=== PATIENT | female | born 1955 | race Caucasian/White ===

== ENCOUNTER 2016-11-10 23:30 | Emergency (ER) | payer OTHER ==
[~2016-11-10 23:30] MED LIST: AMOXICILLIN875 MG PO; CALCIUM; CIPRO500 M2 PO; CO Q-10; ESSENTIAL OIL PO; FLAGYL500 M1 PO; FLEXERIL10 MG PO; HYDROCHLOROTHIA25 MG PO; LISINOPRIL-HCT1 EAC1 PO; LISINOPRIL20 M1 PO; NO MEDS; NORCO 7.5/325 T1 TAB PO; NORVASC5 MG PO; OMEGA 3; OMEPRAZOLE40 M2 PO; ONE-A-DAY; PROBIOTIC1 EA10 PO; TRAMADOL HCL50 M2 PO; TYLENOL EXTRA500 M1 PO; VITAMIN D; [UNRECOGNIZED DRUG - OTHER]
== END 2016-11-11 00:01 | disposition left against medical advice (07) ==
LOC: EDMED 23:30
DX: S06.9X1A Unspecified intracranial injury with loss of consciousness of 30 minutes or less, initial encounter (principal); Z53.29 Procedure and treatment not carried out because of patient's decision for other reasons; W01.10XA Fall on same level from slipping, tripping and stumbling with subsequent striking against unspecified object, initial encounter